=== PATIENT | male | born 1935 | race Caucasian/White ===

== ENCOUNTER 2016-10-08 23:16 | Emergency (ER) | payer OTHER ==
[~2016-10-08] VITALS: Ht 175.3 cm; Wt 68.0 kg
[2016-10-08] MEDS ORDERED: METFORMIN HCL 500 MG (23:35)
[2016-10-08] MEDS ORDERED: SIMVASTATIN 20 MG (23:35)
[2016-10-08] MEDS ORDERED: ASPI81TA31 PO (23:36)
[2016-10-09] MEDS: ONDANSETRON 4 MG/2 ML VIAL IV ONE (00:04)
[2016-10-09] MEDS: IV NORMAL SALINE 1000 ML BAG IV ONE (00:09)
[2016-10-09] MEDS ORDERED: ONDANSETRON 4 MG/2 ML VIAL ONE (00:14)
[2016-10-09 00:16] LABS: BASOPHILS % (AUTO) 0.2 % (0.0-2.0); EOSINOPHILS # (AUTO) 0.1 K/uL (0.0-0.7); HEMATOCRIT 44.4 % (40-50); HEMOGLOBIN 14.8 G/DL (14.0-18.0); LYMPHOCYTES # (AUTO) 0.9 K/UL (0.8-4.8); LYMPHOCYTES % (AUTO) 8.4 % (20.5-51.5); MEAN CORPUSCULAR HEMOGLOBIN 31.3 UUG (27.0-31.0); MEAN CORPUSCULAR HGB CONC 33 g/dL (32.0-37.0); MEAN CORPUSCULAR VOLUME 94.1 FL (82.0-92.0); MONOCYTES # (AUTO) 0.4 K/UL (0.1-1.30); MONOCYTES % (AUTO) 3.7 % (0.0-11.0); NEUTROPHILS # (AUTO) 8.8 K/UL (1.8-8.9); NEUTROPHILS % (AUTO) 86.7 % (38.5-71.5); PLATELET COUNT (AUTO) 190 K/UL (150-450); RED BLOOD CELL COUNT(AUTO) 4.72 MIL/UL (4.7-6.1); WHITE BLOOD COUNT (AUTO) 10.2 K/UL (4.0-11.2)
[2016-10-09 00:26] LABS: CARBON DIOXIDE 26 mmol/L (21-32); CHLORIDE 106 mmol/L (98-107); CREATININE 1.4 mg/dL (0.6-1.3); GLUCOSE 154 mg/dL (74-106); POTASSIUM 3.5 mmol/L (3.5-5.1); UREA NITROGEN, BLOOD 26 mg/dL (7-18)
[2016-10-09 00:32] LABS: ALANINE AMINOTRANSFERASE 29 U/L (16-63); ALKALINE PHOSPHATASE 62 U/L (50-136); ASPARTATE AMINOTRANSFERASE 19 U/L (15-37); BILIRUBIN,DIRECT 0.2 mg/dL (0.0-0.2); TOTAL PROTEIN, SERUM 7.3 g/dL (6.4-8.2)
--- NOTE | 2016-10-09 00:53 | NUR ---
Called [facility], spoke with Bessie.
--- NOTE | 2016-10-09 01:17 | NUR ---
Received call from Dr. Gary Neumann. Speaking with Dr. Rivera at this time.
--- NOTE | 2016-10-09 01:20 | NUR ---
Waiting for call back from [place] for bed assignment.
--- NOTE | 2016-10-09 02:39 | NUR ---
Spoke with TAMI Oreilly and gave report. Patient will be admitted to room [address] Narvaez. Awaiting for transport.
--- NOTE | 2016-10-09 03:46 | NUR ---
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 Report given to Joanne.
== END 2016-10-09 04:26 | disposition short-term general hospital (02) ==
LOC: ER 23:21
DX: R55 Syncope and collapse (principal); E11.9 Type 2 diabetes mellitus without complications; E78.00 Pure hypercholesterolemia, unspecified; Z79.82 Long term (current) use of aspirin
CPT/HCPCS: 36415; 70030-TC; 71010; 85025; 85730; 93005; A4663; J2405; J7030